=== PATIENT | male | born 1950 | race Caucasian/White ===

== ENCOUNTER → 2016-12-11 | Outpatient (CLI) | payer MEDICARE, OTHER ==
--- NOTE | 2016-12-12 09:22 | PE ---
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 Radiation therapy to th e left side of the phase completed on 12/10/2016 and last chemotherapy on 11/25/2016. Patient also rec eived bone marrow stimulation on 11/26/2016. Patient also reports a history of melanoma. TECHNIQUE: Following the intravenous administration of 12.98 mCi of F-18 FDG, whole body images are performed from the skull base to the midthigh. Images are reviewed on the computer in the coronal, axial, and sagittal planes. Reconstructed rotating images are created on independent workstation and reviewed on the computer. A localization and attenuation correction CT is performed in conjunction with the PET scan. Glucose level: 91 mg/dL COMPARISON: None. FINDINGS: PET: Masslike thickening of the left premaxillary premaxillary/infraorbital soft tissues shows borderline moderate hypermetabolism, maximum SUV 3.5. There is some physiologic FDG uptake within the extraocular muscles. Borderline enlarged submental lymph nodes measuring up to 1 cm show minimal FDG uptake maximal SUV 2. 1. A 6 mm left mid lung pulmonary nodule axial image 114 is nonspecific and shows no discrete FDG uptake though there is small for adequate PET characterization. Otherwise, physiologic FDG uptake throughout the chest, abdomen, and pelvis. Some variable mild to moderate FDG uptake within the right hand is suspected to be on a degenerative basis, maximum SUV 4.0. The legs show prominent muscular FDG uptake. There is mild cutaneous soft tissue swelling of the leg s with some more confluent subcutaneous edema distally. 2 focal areas of increased FDG uptake along the plantar aspect of the right hindfoot, one of which co rresponds to the origin of the plantar fascia possibly relating to plantar fasciitis, maximum SUV 2.3 . A second area just adjacent possibly at the attachment site of a plantar ligament or correlating to the peroneus longus tendon, maximal SUV 2.1. Tiny focus of increased tracer activity located cutaneously along the plantar aspect of the left four th toe shows minimal FDG uptake, maximum SUV 1.5. Otherwise, no suspicious FDG uptake within the distal lower extremities. ATTENUATION CORRECTION CT: Moderate mucosal thickening left maxillary sinus and cerumen in the left external auditory canal. Asi de from the prominent submental lymph nodes, no cervical lymphadenopathy seen. Left anterior chest wall injection port with catheter tip in the upper right atrium. Median sternotomy wires are present with post-CABG changes. Heart is upper limits of normal in size w ithout pericardial effusion. Aorta is normal caliber with conventional arch vessel branching anatomy. Nonenlarged mediastinal lymph nodes measure up to 8 mm in the precarinal region. No thoracic lymphad enopathy by CT size criteria. There is marked bilateral gynecomastia. There is a trace left pleural effusion with strandy areas of atelectasis or scarring in the mid to lo wer lungs. There is a small hiatal hernia. Mild thickening of the left adrenal gland without discrete nodularit y. 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 Mild atherosclerotic calcifications throughout the abd ominal aorta and iliac arteries. No dilated small bowel, free fluid, or free air. No mesenteric or re troperitoneal lymphadenopathy. No pericolonic inflammatory change. Bladder is urine distended with several mild circumferential wall thickening. Prostate gland mildly p rominent at 4.4 cm wide. Bones: Osseous destructive process seen. Degenerative changes lower lumbar spine endplate spondylosis mid to lower thoracic spine. IMPRESSION: 1. Masslike thickening of the left premaxillary soft tissues likely corresponds the patient's site of primary neoplasm and shows borderline moderate hypermetabolism. The increased FDG uptake may relate to partial response or post radiation therapy changes. The latter is favored. 2. A couple borderline enlarged 1 cm submental lymph nodes show minimal FDG uptake, maximum SUV 2.1, and can be followed. These could be postinflammatory lymph nodes or could represent a site of treated disease. 3. A tiny focus of minimal FDG uptake along the skin of the plantar aspect of the left fourth toe. Co rrelate with physical exam findings to exclude a cutaneous lesion. 4. A 6 mm left mid lung pulmonary nodule shows no discrete FDG uptake but is small for adequate PET c haracterization. This should be followed. 5. Some variable moderate patchy FDG uptake within the right hand probably relates to osteoarthritic change. 6. Otherwise, no convincing evidence for metastatic disease. 7. Trace left pleural effusion. 8. Mild circumferential bladder wall thickening; correlate to exclude cystitis.
== END | disposition home or self-care (01) ==
LOC: RADPETMAIN 07:36
PROVIDERS: ATTEND Radiology Radiation Oncology
DX: C4A.9 Merkel cell carcinoma, unspecified (principal); R91.1 Solitary pulmonary nodule; J90 Pleural effusion, not elsewhere classified; N32.89 Other specified disorders of bladder
CPT/HCPCS: 78816; A9552